=== PATIENT | female | born 1955 | race Caucasian/White ===

== ENCOUNTER 2017-06-20 17:53 | Emergency (ER) | payer OTHER ==
[2017-06-20] MEDS: IPRATROPIUM (NEB) 0.5 MG/2.5 ML AMP INH (20:37)
[2017-06-20] MEDS: LEVALBUTEROL (NEB) 1.25 MG/0.5 ML AMP INH (20:37)
[2017-06-20] MEDS: LIDOCAINE 1% (MDV) 20 ML INJ SC (22:21)
[2017-06-20] MEDS: CEFTRIAXONE 1 GM INJ IM (22:22)
== END 2017-06-20 22:49 | disposition home or self-care (01) ==
LOC: FTE 17:53
DX: R05 Cough (principal); J45.909 Unspecified asthma, uncomplicated; E11.9 Type 2 diabetes mellitus without complications; Z79.84 Long term (current) use of oral hypoglycemic drugs
CPT/HCPCS: 71045; 87400; 94644; 96372; 99284-25